=== PATIENT | male | born 1945 | race Caucasian/White ===

== ENCOUNTER → 2019-04-01 | Outpatient (CLI) | payer MEDICARE ==
[~2019-04-01] MED LIST: REGADENOSON 0.4 MG/5 ML DISP.SYRIN. IV ONE
--- NOTE | 2019-04-01 13:06 | PCVCIMAG ---
APPROVED REPORT Imaging Protocol: Rest Tc-99m/Stress Tc-99m 1 day Study performed: 04/01/2019 09:02:30 Indication: SOA, Indigestion, , Pre Op Patient Location: Out-Patient Stress Nurse: Kaur Corona RN, Sarah Perez RN NM Tech:Hector PinedaHUYEN Ht: 6 ft 0 in Wt: 188 lbs BSA: 2.08 m2 HR: 59 bpm BP: 153/72 mmHg BMI: 25.4 Rhythm: Sinus Bradycardia Medical History Medical History: Age, PVD, Former Smoker Medications: ASA, Atorvastatin Allergies: No known drug allergies Exercise History: Indeterminate Resting Data Rest SPECT myocardial perfusion imaging was performed in supine position 45 minutes following the intravenous injection of 11.6 mCi of Tc-99m Sestamibi. Time of rest injection: 824 Date: 04/01/2019 Administration Route: IV Administration Site: Right AC Pharmacologic Stress Pharmacologic stress test was performed by injecting Regadenoson 0.4 mg IV push over 10-15 seconds immediately followed by the intravenous injection of 34.5 mCi of Tc-99m Sestamibi. Time of stress injection: 939 Date: 04/01/2019 Administration Route: IV Administration Site: Right AC Gated Stress SPECT was performed 45 minutes after stress injection. The images were gated to evaluate regional wall motion and calculate left ventricular ejection fraction. Stress Test Details Stress Test: Pharmacologic stress was paired with low level exercise. Reason for pharmacologic stress test: Aortic Stenosis. HRMax Heart Rate (APMHR): 149 bpm Resting HR: 59 bpmTarget HR (85% APMHR): 126 bpm Max HR Achieved: 86 bpm % of APMHR: 57 Recovery HR: 67 bpm BP Resting BP: 153/72 mmHg Max BP: 134/72 mmHg Recovery BP: 141/92 mmHg ECG Resting ECG: Sinus Bradycardia Stress ECG: Sinus Rhythm Arrhythmia: PVC's Recovery ECG: Sinus Rhythm Clinical Reason for Termination: Completed protocol Stress Symptoms: Dyspnea, Leg Fatigue Symptoms resolved with caffeine. Stress ECG Conclusion 1. Inadequate response intravenous Lexiscan 2. Inadequate heart rate per ECG diagnosis Study Data Post stress, the left ventricular ejection was 65%.. SSS: 7 SRS: 8 SDS: 0 TID = 0.99. Perfusion There is a large area of severely reduced uptake in the entire segment of the inferior wall which is seen on the stress images as well as the resting images. This area thickens and moves normally and is most consistent with attenuation artifact. Wall Motion Normal left ventricular wall motion. Nuclear Conclusion ECG Findings: non-diagnostic Clinical Findings: negative for ischemia Nuclear Findings: negative for ischemia Exercise Capacity: not assessed Left Ventricular Function: normal 1. Low risk study 2. Post-rest left ventricular ejection fraction 65% with normal contractility Interpreted by: Howard Diaz MD Electronically Approved: 04/01/2019 13:05:48 <Conclusion> 1. Inadequate response intravenous Lexiscan 2. Inadequate heart rate per ECG diagnosis
== END | disposition home or self-care (01) ==
LOC: PCVCIMAG 08:07
PROVIDERS: ATTEND Internal Medicine
DX: Z01.810 Encounter for preprocedural cardiovascular examination (principal); K30 Functional dyspepsia; E78.5 Hyperlipidemia, unspecified; I73.9 Peripheral vascular disease, unspecified; K21.9 Gastro-esophageal reflux disease without esophagitis; E78.00 Pure hypercholesterolemia, unspecified; Z79.82 Long term (current) use of aspirin; Z87.891 Personal history of nicotine dependence
CPT/HCPCS: 36415; 78452; 80061; 93017; A9500; G0463; J2785